=== PATIENT | male | born 1945 | race Two or more races ===

== ENCOUNTER 2021-06-04 14:33 | Emergency (ER) | payer OTHER ==
[~2021-06-04] VITALS: Ht 177.8 cm; Wt 54.4 kg
[2021-06-04 14:35] VITALS: BP 107/74
[2021-06-04] MEDS ORDERED: cefTRIAXone SOD 1,000 MG VL IM ONE (16:30)
[2021-06-04] MEDS ORDERED: TETANUS-DIPTH-ACEL PERTUSSIS 0.5ML SYR Tdap IM ONE (16:30)
[2021-06-04] MEDS ORDERED: CEPH-509 PO (16:39)
[2021-06-04] MEDS ORDERED: ACETAMINOPHEN/CODEINE#3 (300/30mg) TAB PO ONE (16:45)
[2021-06-04] MEDS ORDERED: ONDANSETRON ODT 4 MG TAB PO ONE (16:45)
[2021-06-04] MEDS ORDERED: BACITRACIN TOP OINT 1 UD PKG TOP ONE (17:00)
[2021-06-04] MEDS ORDERED: LIDOCAINE 1% HCL (LOCAL ANESTH.) INJ 20ML MDV ONE (17:21)
== END 2021-06-04 17:47 | disposition home or self-care (01) ==
LOC: ER 14:33
DX: S61.412A Laceration without foreign body of left hand, initial encounter (principal); Z79.899 Other long term (current) drug therapy; W29.3XXA Contact with powered garden and outdoor hand tools and machinery, initial encounter; Y93.89 Activity, other specified; Y92.89 Other specified places as the place of occurrence of the external cause; Y99.8 Other external cause status
CPT/HCPCS: 12002; 73130; 90471; 90715; 96372; 99284; J0696; J2001; Q0162

== ENCOUNTER 2021-06-07 15:03 | Emergency (ER) | payer OTHER ==
[~2021-06-07] VITALS: Ht 177.8 cm; Wt 54.4 kg
[~2021-06-07 15:03] MED LIST: CEPH-509 PO
[2021-06-07 15:30] VITALS: BP 127/77
== END 2021-06-07 16:32 | disposition home or self-care (01) ==
LOC: ER 15:03
DX: S61.412D Laceration without foreign body of left hand, subsequent encounter (principal); Z79.899 Other long term (current) drug therapy; W29.3XXD Contact with powered garden and outdoor hand tools and machinery, subsequent encounter